=== PATIENT | female | born 1945 | race Caucasian/White ===

== ENCOUNTER → 2023-05-12 | Outpatient (CLI) | payer MEDICARE, MEDICAID ==
[~2023-05-12] MED LIST: ARICEPT 5MG PO; COREG 3.123.125 MG/T PO; COZAAR100 MG PO; HCTZ12.5TAB PO; PRAVACHOL 20MG20 MG PO
== END ==
LOC: MC.RAD 09:08
DX: Z12.31 Encounter for screening mammogram for malignant neoplasm of breast (principal); N64.89 Other specified disorders of breast

== ENCOUNTER → 2023-06-09 | Outpatient (CLI) | payer MEDICARE, MEDICAID | LOC: MC.RAD 10:32 | DX: R92.8 Other abnormal and inconclusive findings on diagnostic imaging of breast (principal) ==

== ENCOUNTER 2023-10-07 11:53 | Outpatient (CLI) | payer MEDICARE, MEDICAID ==
[~2023-10-07] VITALS: Ht 157.5 cm; Wt 67.8 kg
[2023-10-07] MEDS ORDERED: Denosumab 60 MG/ML SYRINGE SQ ONE (12:15)
[2023-10-07 12:48] VITALS: BP 143/69; PULSE 62; TEMP 98
--- NOTE | 2023-10-07 12:50 | NUR ---
Pt discharged via ambulatory.
== END 2023-10-07 12:50 ==
LOC: EUO 11:53
DX: M81.0 Age-related osteoporosis without current pathological fracture (principal)
CPT/HCPCS: J0897